=== PATIENT | male | born 1980 | race Caucasian/White ===

== ENCOUNTER 2016-08-28 15:10 | Emergency (ER) | payer OTHER ==
[~2016-08-28] VITALS: Ht 182.9 cm; Wt 117.9 kg
--- NOTE | 2016-08-28 16:00 | RADIOLOGY REPORT ---
EXAMINATION: XR SHOULDER, RIGHT CLINICAL INFORMATION: Status post trauma. COMPARISON: None TECHNIQUE: AP external rotation, Grashey, scapular Y, and axillary views of the right shoulder. FINDINGS: Bone mineral density is maintained without evidence of fracture or dislocation. No focal osseous lesions are seen. Joint space is maintained without productive or erosive changes. IMPRESSION: No fracture or dislocation.
[2016-08-28] MEDS ORDERED: CYCLOBENZAPRINE10 M1 PO (16:15)
--- NOTE | 2016-08-28 16:15 | ED UPPER/LOWER EXTREMITY COMPL ---
History of Present Illness General Chief Complaint: Upper Extremity Problem Stated Complaint: PT HAD A TREE BRANCH FALL ON THE RT SHOULDER Source: patient, family Exam Limitations: no limitations Vital Signs & Intake/Output Vital Signs & Intake/Output Vital Signs Date Time Temp Pulse Resp B/P B/P Pulse O2 O2 Flow FiO2 Mean Ox Delivery Rate 08/28 1700 87 124/78 08/28 1514 97.9 88 16 120/80 97 Room Air Allergies Coded Allergies: amoxicillin (HIVES 08/28/16) Reconcile Medications Cyclobenzaprine HCl 10 MG TABLET 1 TAB PO QPM PRN muscle spasm Spangle-3 Fatty Acids/Fish Oil (Fish Oil 1,200 MG Softgel) (Unknown Strength) CAPSULE. (Unknown Dose) PO DAILY SUPPLEMENT (Reported) Triage Note: PT STATES A TREE BRANCH FELL ON HIS RIGHT SHOULDER. Triage Nurses Notes Reviewed? yes Onset: Abrupt Duration: hour(s): Timing: single episode today Severity: moderate Pain/Injury Location: Right: Shoulder. Method of Injury: direct blow Modifying Factors: Improves With: pain medication. Worsens With: movement. HPI: 36-year-old male presents to emergency department complaining of pain in right shoulder. Patient states that today while doing yardwork A branch fell and hit his right shoulder. He felt immediate pain however thought that this would go away and continued to mow the lawn, after about an hour the pain was too significant to continue working. He took a Motrin which took the edge off however pain persists. Pain is worse with movement at the shoulder joint. He also complains of numbness of the medial aspect of his upper and lower. He complains swelling in his right shoulder and mild skin abrasion. The branch was approximately 20 feet in length and about 4-6 inches in diameter, the branch fell about 15-20 feet from the tree. The patient denies head strike, loss of consciousness, fall, tingling. (BLAINE REY PA-C) Past History Travel History Traveled to [place] past 21 day No Medical History Any Pertinent Medical History? see below for history Neurological: NONE EENT: NONE Cardiovascular: NONE Respiratory: NONE Gastrointestinal: NONE Hepatic: NONE Renal: NONE Musculoskeletal: NONE Psychiatric: alcohol dependence, anxiety, substance abuse Endocrine: NONE Surgical History Surgical History: non-contributory Psychosocial History Who do you live with Significant Other What is your primary language P[place]in[place] Tobacco Use: Current Not Daily Daily Tobacco Use Amount/Type: =< 4 Cigarettes daily ETOH Use: denies use Illicit Drug Use: denies illicit drug use Family History Hx Contributory? No (BLAINE REY PA-C) Review of Systems Review of Systems Constitutional: Reports: no symptoms. EENTM: Reports: no symptoms. Respiratory: Reports: no symptoms. Cardiovascular: Reports: no symptoms. Gastrointestinal/Abdominal: Reports: no symptoms. Genitourinary: Reports: no symptoms. Musculoskeletal: Reports: see HPI. Skin: Reports: see HPI. Neurological/Psychological: Reports: see HPI. Hematologic/Endocrine: Reports: no symptoms. Immunological: Reports: no symptoms. All Other Systems: Reviewed and Negative (BLAINE REY PA-C) Physical Exam Physical Exam General Appearance: well developed/nourished, no apparent distress, alert, awake Head: atraumatic, normal appearance Eyes: Bilateral: normal appearance, EOMI. Ears, Nose, Throat: hearing grossly normal Neck: normal inspection, supple, full range of motion Cardiovascular/Respiratory: no respiratory distress Peripheral Pulses: 2+ radial (R), 2+ radial (L) Back: normal inspection, normal range of motion, no vertebral tenderness Shoulder Left: normal range of motion, normal inspection Shoulder Right: ROM LIMITED D/T PAIN, PATIENT UBABLE TO ABDUCT ARM FURTHER THAN 90 DEGREES, SWELLING AND TENDERNESS OVER RIGHT SHOULDER, MINOR ABRASION TO RIGHT ANTERIOR SHOULDER Elbow Left: normal range of motion, normal inspection Elbow Right: normal range of motion, normal inspection Hand Left: normal inspection, normal range of motion Hand Right: normal inspection, normal range of motion Neurologic/Tendon: no pulse deficit, sensory deficit (MEDIAL ASPECT OF RIGHT ARM ) Skin: SWELLING AND ERYTHEMA OVER RIGHT SHOULDER WITH MINOR ABRASION (BLAINE REY PA-C) Progress Differential Diagnosis: cellulitis, contusion, dislocation, fracture, gout, sprain, tendon injury Plan of Care: Orders Procedure Date/time Status XRY-SHOULDER COMPLETE-RIGHT 08/28 1516 Active XRAYS reviewed with ISA Sumner. Numbness likely a result of acute brachial plexus irritation from his injury. No acute fracture or dislocation detected on x-ray. Radiological findings discussed with patient. Patient will take Tylenol or Motrin for his pain and apply ice. He will take Flexeril as needed for his muscle spasm. He is provided with a sling in the ED. The patient will follow- up with orthopedics if he does not notice any improvement in his symptoms, he was given a referral today. The patient is in agreement with the plan of care. The patient was discussed with Dr. Chacon. (BLAINE REY PA-C) Diagnostic Imaging: Viewed by Me: Radiology Read. Discussed w/RAD: Radiology Read. Radiology Impression: PATIENT: MYNOR BABCOCK PRESENT AGE: 36 PATIENT ACCOUNT NO: [id number] : 80 LOCATION: [facility] ORDERING PHYSICIAN: BLAINE REY PA-C SERVICE DATE: 08/28/16 EXAM TYPE: RAD - XRY-SHOULDER COMPLETE-RIGHT EXAMINATION: XR SHOULDER, RIGHT CLINICAL INFORMATION: Status post trauma. COMPARISON: None TECHNIQUE: AP external rotation, Grashey, scapular Y, and axillary views of the right shoulder. FINDINGS: Bone mineral density is maintained without evidence of fracture or dislocation. No focal osseous lesions are seen. Joint space is maintained without productive or erosive changes. IMPRESSION: No fracture or dislocation. DICTATED BY: JACKIE HUTTON MD DATE/TIME DICTATED:08/28/161555 MOLTEN IRON POURER:[place]OR[place] DATE/TIME TRANSCRIBED:08/28/161555 CONFIDENTIAL, DO NOT COPY WITHOUT APPROPRIATE AUTHORIZATION. <Electronically signed in Other Vendor System> SIGNED BY: JACKIE HUTTON MD 08/28/16 1600 (BLAINE REY PA-C) Departure Departure Disposition: HOME OR SELF CARE Condition: Stable Clinical Impression Primary Impression: Shoulder contusion Secondary Impressions: Right shoulder injury Referrals: LUIS HERNANDEZ,TIMMY Fleming (PCP/Family) Additional Instructions: Take Tylenol or Motrin as prescribed as needed for ear pain. Take Flexeril at night for muscle spasm, this may cause drowsiness, do not drive or drink alcohol on this medication. Follow-up with orthopedist referral given to you today if symptoms persist, call to make an appointment. Return with any worsening symptoms or concerns. Departure Forms: Customer Survey General Discharge Information Prescriptions: Current Visit Scripts Cyclobenzaprine HCl 1 TAB PO QPM PRN muscle spasm #8 TAB (BLAINE REY PA-C) PA/[employer] Co-Sign Statement Statement: ED Attending supervision documentation- [] I saw and evaluated the patient. I have also reviewed all the pertinent lab results and diagnostic results. I agree with the findings and the plan of care as documented in the PA's/[employer] INSPECTOR's documentation. [X] I have reviewed the ED Record and agree with the PA's/[employer]OVE [employer] INSPECTOR's documentation. [] Additions or exceptions (if any) to the PAs/[employer] INSPECTOR's note and plan are summarized below: [] (ANGELO ALBERTO,SHABBIR Block)
[2016-08-28] MEDS ORDERED: FISH OIL 1,2001 EAC1 PO (16:24)
[2016-08-28 17:00] VITALS: BP 124/78
== END 2016-08-28 17:00 ==
LOC: ERH 15:10
DX: S40.011A Contusion of right shoulder, initial encounter (principal); W20.8XXA Other cause of strike by thrown, projected or falling object, initial encounter; Y93.H2 Activity, gardening and landscaping; Y92.9 Unspecified place or not applicable
CPT/HCPCS: 73030-RT